=== PATIENT | male | born 1950 | race Caucasian/White ===

== ENCOUNTER → 2017-01-25 | Outpatient (CLI) | payer MEDICARE, OTHER ==
[~2017-01-25] MED LIST: ASPIRIN LO-DOSE81 MG PO; ATIVAN 0.5MG0.5 MG PO; BELBUCA; CLEOCIN150 MG PO; COLACE100 MG PO; CYMBALTA30 MG PO; DOXYCYCLINE HY100 MG PO; DOXYCYCLINE100 MG PO; HUMALOG KW200 UNIT/1 SUB-Q; INSULIN U-500; IRON325 M1 PO; KEFLEX500 MG PO; LAMISIL AT30 GM; LEVEMIR100 UNIT/1 SUB-Q; LIVALO4 MG; LOPRESSOR50 MG PO; LOVENOX 4040 MG/0.4 SUB-Q; LYRICA 100MG C100 MG PO; MILK OF MA400 MG/5 M PO; MOBIC15 MG PO; NORVASC10 MG PO; NOVOLOG100 UNIT/1 SUB-Q; OXYCONTIN EXTEN10 MG PO; PERCOCET 5-3251 EACH PO; SENNA8.6 MG PO; SIMVASTATIN40 MG PO; SPIRONOLACTONE1 EACH PO; TEGRETOL200 MG PO; THERA-VITE W/ B1 TAB PO; VALIUM5 MG PO; VALSARTAN320 MG PO; VITAMIN C1000 MG PO; ZANTAC300 MG PO
== END | disposition disaster alternative care site (69) ==
LOC: GRAD 12:51
DX: L08.9 Local infection of the skin and subcutaneous tissue, unspecified (principal); M86.8X6 Other osteomyelitis, lower leg

== ENCOUNTER → 2017-01-31 | Outpatient (CLI) | payer MEDICARE, OTHER ==
[2017-01-31 09:52] LABS: PROTIME 10.7 SECONDS (9.6-11.1)
== END | disposition disaster alternative care site (69) ==
LOC: LGSMG 09:41
PROVIDERS: Internal Medicine
DX: Z01.818 Encounter for other preprocedural examination (principal); E11.621 Type 2 diabetes mellitus with foot ulcer; M79.606 Pain in leg, unspecified

== ENCOUNTER 2017-02-07 09:16 | Observation (INO) | payer MEDICARE, OTHER ==
[~2017-02-07] VITALS: Ht 185.4 cm; Wt 124.7 kg
--- NOTE | ~2017-02-07 | CON ---
PATIENT'S NAME: MINI THOMAS [facility] AGE: 66 Y [address] ROOM: [place] [address] LOCATION: [facility] ADMIT DATE: 02/07/2017 Consultation DISCHARGE DATE: FAMILY PHYSICIAN: Halima Farmer MD ATTENDING PHYSICIAN: SARAY BOYER DATE OF CONSULTATION: 02/08/2017 REFERRING PHYSICIAN: Saray Boyer MD CONSULTING PHYSICIAN: Dr. Monte. REASON FOR CONSULTATION: Medical management. HISTORY OF PRESENT ILLNESS: The patient is a 66-year-old male with a past medical history of type 1 diabetes on insulin pump who has undergone an elective transmetatarsal amputation today for chronic right lower extremity diabetic osteomyelitis. At this point, he is resting comfortably and the procedure was uncomplicated. The patient operates his own insulin pump and has very good handle on his glycemic/insulin needs. At this point, he denies chest pain, shortness of breath, nausea, vomiting, diarrhea, chest pain, or palpitations. REVIEW OF SYSTEMS: All 10 systems have been reviewed and are negative aside from pertinent positives mentioned above. PAST MEDICAL HISTORY: 1. Type 1 diabetes with insulin dependence. 2. Hypertension. 3. Hypercholesterolemia. 4. Chronic osteomyelitis of right lower extremity. CURRENT MEDICATIONS: 1. Norvasc. 2. Ascorbic acid. 3. Aspirin. 4. Tegretol. 5. Doxycycline. 6. Duloxetine. 7. Insulin pump. PATIENT'S NAME: MINI THOMAS [facility] AGE: 66 Y [address] ROOM: [place] [address] LOCATION: [facility] ADMIT DATE: 02/07/2017 Consultation DISCHARGE DATE: FAMILY PHYSICIAN: Halima Farmer MD ATTENDING PHYSICIAN: SARAY BOYER 8. Metoprolol 75 b.i.d. 9. Multivitamin. 10. Ranitidine. 11. Simvastatin. 12. Spironolactone/hydrochlorothiazide. 13. Valsartan. SOCIAL HISTORY: Negative for any ongoing toxic habits. FAMILY HISTORY: Reviewed and is noncontributory due to known underlying etiology for his presentation. PHYSICAL EXAMINATION: VITAL SIGNS: Temperature 98.7, pulse is 104, blood pressure 146/75, and saturating 94% on room air. GENERAL: Appears as a well-developed, well-nourished elderly male, in no acute distress. NEUROLOGICAL: Exam is nonfocal. EYES: Exam shows pupils are equal and reactive to light. LYMPHATIC: Exam shows no cervical lymphadenopathy. NECK: Exam shows no thyromegaly. LUNGS: Clear to auscultation. HEART: Rate is slightly tachycardic and regular. GI: Abdomen is soft, nontender, nondistended. : Reveals no costovertebral angle tenderness. VASCULAR: Exam is deferred. MUSCULOSKELETAL: Exam is deferred. SKIN: Warm and dry. LABORATORY STUDIES: Studies are just significant for Accu-Cheks in 130s to 150s. IMPRESSION/RECOMMENDATIONS: This is a 66-year-old male postop day #1 for transmetatarsal amputation. Individual problems to be addressed as follows: 1. Type 1 diabetes. The patient is adept at operating his own pump. I have put in orders for that. We will discontinue his D5. 2. Essential hypertension. Well-controlled on the current oral regimen. 3. Hypercholesterolemia. Continue with his statin. Additional management will depend on his clinical course. We will follow the patient with you. Thank you for allowing us to participate in the care of this pleasant gentleman. Time dedicated to this patient encounter is 15 minutes. PATIENT'S NAME: MINI THOMAS [facility] AGE: 66 Y [address] ROOM: [place] [address] LOCATION: [facility] ADMIT DATE: 02/07/2017 Consultation DISCHARGE DATE: FAMILY PHYSICIAN: Halima Farmer MD ATTENDING PHYSICIAN: SARAY BOYER MD ILENE LEONARDO/karie /[id number] d: 02/08/172 t: 02/18/17 033, CONSULTATION REPORT
--- NOTE | ~2017-02-07 | OR ---
PATIENT'S NAME: MINI WRIGHT [facility] AGE: 66 Y [address] ROOM: [place] [address] LOCATION: [facility] ADMIT DATE: 02/07/2017 OR/Procedure Report DISCHARGE DATE: FAMILY PHYSICIAN: Halima Farmer MD ATTENDING PHYSICIAN: ASRAY BOYER SURGEON: Saray Boyer MD RELAY TESTER HELPER: Stuart Krueger PA-C. DATE OF PROCEDURE: 02/07/2017 PREOPERATIVE DIAGNOSES: 1. Right forefoot diabetic wound and osteomyelitis in the setting of previous toe amputations. 2. Gastrocnemius equinus/shortened Achilles tendon. POSTOPERATIVE DIAGNOSES: 1. Right forefoot diabetic wound and osteomyelitis in the setting of previous toe amputations. 2. Gastrocnemius equinus/shortened Achilles tendon. PROCEDURES PERFORMED: 1. Right foot transmetatarsal amputation. 2. Gastrocnemius recession procedure, right leg. 3. Use of intraoperative fluoroscopy, less than one hour. ANESTHESIA: Spinal anesthesia with peripheral nerve blocks. ESTIMATED BLOOD LOSS: Minimal. TOURNIQUET: Right proximal thigh at 250 mmHg. SPECIMEN: Right forefoot. COMPLICATIONS: None. DISPOSITION: Stable, in PACU. COUNTS: All counts were correct. INDICATIONS: Mr. Wright is a pleasant 66-year-old gentleman, who underwent the noted procedures above. The risks, benefits, and alternatives of pursuing a surgical intervention were discussed with the patient in detail. The patient elected to proceed with surgery. Anesthesia was consulted for perioperative evaluation. I marked the lower lobe from the surgical site. OPERATIVE REPORT IN DETAIL: The patient was brought from the holding area to PATIENT'S NAME: MINI WRIGHT [facility] AGE: 66 Y [address] ROOM: [address] [address] LOCATION: [facility] ADMIT DATE: 02/07/2017 OR/Procedure Report DISCHARGE DATE: FAMILY PHYSICIAN: Halima Farmer MD ATTENDING PHYSICIAN: SARAY BOYER the operating room. A time-out was performed. Anesthesia performed through the course of the case. The patient was placed supine on the operating room table. The right lower extremity was then prepped and draped in a sterile fashion. Antibiotic was administered for perioperative prophylaxis. An Esmarch was used to exsanguinate the limb, and the tourniquet was inflated to 250 mmHg. I turned my attention to the medial aspect of the leg. I used a #15 blade knife to make the incision through skin and subcutaneous tissue down to the fascia to identify the gastrocnemius aponeurosis for my gastrocnemius recession procedure. I then introduced a speculum. I identified the aponeurosis and used a #15 blade knife to cut it. I then removed the speculum and hyperdorsiflexed the ankle and achieved improved dorsiflexion of the ankle after this. The wound was then copiously irrigated with normal sterile saline solution. The bulb syringe and closed in layers beginning with 0 Vicryl suture, followed by 2-0 Vicryl suture and staple to approximate the skin. I then turned my attention to the forefoot. The patient has already had previous toe amputations and had a wound with some serous drainage that has been opening on and off. I marked out my transmetatarsal amputation flap. It was a full-thickness incision circumferentially around the foot. I was carefully cauterizing the vessels and tied them off, and tendons. Using oscillating saw, I performed my transmetatarsal amputation. I was careful to leaving off the fifth metatarsal in order not to disturb the attached to the peroneus brevis tendon. The soft tissues at the time of the amputation surrounding the midfoot appeared healthy and with no concern for infection. The partially amputated forefoot was then sent for specimen. The wound was then copiously irrigated with a normal sterile saline solution via pulsatile lavage. Hemostasis was maintained with the help of the Bovie electrocautery device. The wound was then closed in layers beginning with 0 Vicryl suture, followed by 2-0 Vicryl suture followed by a 2-0 nylon suture in interrupted horizontal mattress fashion to approximate the skin. The tourniquet was then let down. There was no undue tension on the flap. Sterile dressing in the form of Xeroform, followed by 4x4, Webril, and Gregorio were placed. The patient was then transferred from the operating room table on to the stretcher and brought to the recovery room in stable condition. There were no intraoperative complications noted. Of note, my Stuart ZUNIGA PA-C, played an integral role in the intraoperative care of this patient. This included preoperative positioning, intraoperative expert retraction, and closing and dressing functions. IMPRESSION: The patient is status post the noted procedures above. PATIENT'S NAME: MINI WRIGHT [facility] AGE: 66 Y [address] ROOM: [place] [address] LOCATION: [facility] ADMIT DATE: 02/07/2017 OR/Procedure Report DISCHARGE DATE: FAMILY PHYSICIAN: Halima Farmer MD ATTENDING PHYSICIAN: SARAY BOYER PLAN: The patient will be heel weightbearing on the right lower extremity in a postop shoe. Instructed to rest, ice, and elevate the extremity going forward. Postoperative antibiotics will be administered per routine. Physical Therapy and Occupational Therapy will be consulted for early ambulation for prevention of deconditioning. DVT prophylaxis will also be administered in the form of aspirin. The Case Management and Social Work team will also be consulted to help the patient at the time of discharge. The Hospitalist Service will manage the patient's medical comorbidities. We will likely perform a dressing change tomorrow prior to discharge. MD WENDY THOMPSON/modl /[id number] d: 02/07/172024 t: 02/08/17 1145, OPERATIVE SUMMARY
[~2017-02-07 09:16] MED LIST changes: -COLACE100 MG PO; -HUMALOG KW200 UNIT/1 SUB-Q; -INSULIN U-500; -IRON325 M1 PO; -LOVENOX 4040 MG/0.4 SUB-Q; -LYRICA 100MG C100 MG PO; -MILK OF MA400 MG/5 M PO; -OXYCONTIN EXTEN10 MG PO; -PERCOCET 5-3251 EACH PO; -SENNA8.6 MG PO; -VALIUM5 MG PO
--- NOTE | 2017-02-07 19:13 | NUR ---
Significant Event: patient up to floor from PACU at 1445. jana dressing to r) lower leg/foot c/d/i. patient states sensation normal to r) leg, able to move extremity slightly, r) leg warm to touch. calf pump to l) leg. denied pain when asked. r) leg elevated on pillow. has insulin pump, paper work reviewed with patient and left at bedside. Follow up:
--- NOTE | 2017-02-08 04:59 | NUR ---
Significant Event: Dressing is clean, dry and intact. No numbness or tingling. Has an insulin pump and is managing his own blood sugars. On room air. 1 assist with knee scooter that his brought. Refused pain medications except for a Percocet at 2246. Intermittently tachycardic. Possible dismissal. Follow up:
[2017-02-08] MEDS ORDERED: PERCOCET 5-3251 EACH PO (10:17)
--- NOTE | 2017-02-08 10:44 | NUR ---
Patient had no questions or concerns with discharge instructions. Patient was very anxious to get home to his dogs. Dressing was C/D/I. VSS. Percocet given prior to dismissal. Patient was wheeled to [facility] for discharge at 1030.
--- NOTE | 2017-02-08 11:04 | NUR ---
Diabetes center note; 0930 Patient had restarted his insulin pump last evening, rates of pump written on order set. Log at bedside, last blood sugar this a.m. was 108 site of infusion set is on left upper outer abdomin. Assisted patient in completing the Diabetes Survival Skills Assessment form and answered all quesitons. Copy of form applied to his chart. Cindy Merchant RN, CDE at [facility] has an appt. with patient on 02/15/17 for on-going assistance with pump management. A1C was 7.3 %. Emphasized importance of proper control of blood sugars to reduce further complications with diabetes, promore wound healing and reduce risks of wound infection. Patient and spouse both state understanding. Plans to be dismissed today, as soon as MD sees patient.
--- NOTE | 2017-02-08 15:29 | NUR ---
Introduced self and CM role to patient and his this morning. He stated that he is dismissing today and that doctor just left the room giving him the okay to discharge to home. No needs or concerns about leaving. Plan home with assistance from his . CM Occupational Health Physiotherapist TH.
[2017-03-02] MEDS ORDERED: KEFLEX500 MG PO (09:40)
[2017-07-10] MEDS ORDERED: IRON325 M1 PO (12:46)
[2017-07-10] MEDS ORDERED: INSULIN U-500 (12:49)
[2017-07-11] MEDS ORDERED: KEFLEX500 MG PO (09:33)
== END 2017-02-08 10:45 | disposition disaster alternative care site (69) ==
LOC: G3N 09:16 → GSDC 09:16 → G3N 14:45 → GSDC 14:46 → G3N 02-08 10:45 → GSDC 02-08 10:45 → G3N 02-08 10:45
PROVIDERS: ADMIT Orthopaedic Surgery Adult Reconstructive Orthopaedic Surgery
PROC: 0Y6M0Z9 Detachment at Right Foot, Partial 1st Ray, Open Approach (ICD-10-PCS; principal; 2017-02-07)
PROC: 0Y6M0ZB Detachment at Right Foot, Partial 2nd Ray, Open Approach (ICD-10-PCS; 2017-02-07)
PROC: 0Y6M0ZC Detachment at Right Foot, Partial 3rd Ray, Open Approach (ICD-10-PCS; 2017-02-07)
PROC: 0Y6M0ZD Detachment at Right Foot, Partial 4th Ray, Open Approach (ICD-10-PCS; 2017-02-07)
PROC: 0Y6M0ZF Detachment at Right Foot, Partial 5th Ray, Open Approach (ICD-10-PCS; 2017-02-07)
PROC: 0L8N0ZZ Division of Right Lower Leg Tendon, Open Approach (ICD-10-PCS; 2017-02-07)
DX: E10.69 Type 1 diabetes mellitus with other specified complication (principal); M86.8X7 Other osteomyelitis, ankle and foot; M21.6X1 Other acquired deformities of right foot; I10 Essential (primary) hypertension; E78.5 Hyperlipidemia, unspecified; K21.9 Gastro-esophageal reflux disease without esophagitis; F32.9 Major depressive disorder, single episode, unspecified; Z98.1 Arthrodesis status; Z90.49 Acquired absence of other specified parts of digestive tract; Z79.82 Long term (current) use of aspirin; Z79.4 Long term (current) use of insulin; Z79.899 Other long term (current) drug therapy
CPT/HCPCS: A9270; G0378; G8978; G8979; G8980; J0690; J1650; J2250; J3480; J7030

== ENCOUNTER → 2017-02-15 | Outpatient (CLI) | payer MEDICARE, OTHER ==
[~2017-02-15] MED LIST changes: +COLACE100 MG PO; +HUMALOG KW200 UNIT/1 SUB-Q; +INSULIN U-500; +IRON325 M1 PO; +LOVENOX 4040 MG/0.4 SUB-Q; +LYRICA 100MG C100 MG PO; +MILK OF MA400 MG/5 M PO; +OXYCONTIN EXTEN10 MG PO; +PERCOCET 5-3251 EACH PO; +SENNA8.6 MG PO; +VALIUM5 MG PO
--- NOTE | ~2017-02-15 | CON ---
PATIENT'S NAME: MINI THOMAS [facility] AGE: 66 Y [address] ROOM: [place] [address] LOCATION: [facility] ADMIT DATE: 02/15/2017 Consultation DISCHARGE DATE: FAMILY PHYSICIAN: Halima Farmer MD ATTENDING PHYSICIAN: Halima Farmer DATE OF CONSULTATION: 02/15/2017 [id number] encounter time is 11:20 a.m. to 12:20 a.m. HISTORY OF PRESENT ILLNESS: Mini is a 66-year-old white male referred by Dr. Halima Farmer for diabetic education and titration of insulin and insulin pump instruction. His current height is 6 foot 1.5 inches, weight 284.4 pounds, BMI of 36.99. Current vital signs are blood pressure 120/52, pulse 80, respirations 18, O2 saturation 91%. The patient has a history of type 2 diabetes that was diagnosed in 1984. He has been on an insulin pump for about 20 years but has not used it in the current fashion. He has a [employer] insulin pump. He also takes Levemir as a basal dose every day along with his insulin pump which is a little unusual. PAST MEDICAL HISTORY: His current problems or past history is lumbosacral pain, depression, diabetic neuropathy, former diabetic ulcer in toe with recent right midfoot amputation for osteomyelitis, GERD, hyperlipidemia, hypertension, neck pain. CURRENT MEDICATIONS: 1. Aspirin 81 mg daily. 2. Multivitamin 1 daily. 3. Vitamin C 1000 mg daily. 4. Simvastatin 40 mg daily. 5. Amlodipine 10 mg daily. 6. Metoprolol 50 mg 1.5 tablets twice daily. 7. Spironolactone with hydrochlorothiazide 25/25 one daily. 8. Valsartan 320 mg daily. 9. Cephalexin 500 mg t.i.d. for 10 days which started on February 15. 10. In addition to his NovoLog U-100 which he takes approximately 117.5 units for a total daily dosage plus or minus 10.2 with 52% of that being basal at 61.7 units and 48% of that being 55.8 units per day which is actually pretty close to 50:50, not counting his basal Levemir which he uses 30 units daily. LABORATORY DATA: His most recent laboratory data was obtained on 01/22/2017 with a fasting glucose of 172. Lipid profile showing total cholesterol 134, HDL 39, LDL 76, PATIENT'S NAME: MINI THOMAS [facility] AGE: 66 Y [address] ROOM: [place], [place] [address] LOCATION: [facility] ADMIT DATE: 02/15/2017 Consultation DISCHARGE DATE: FAMILY PHYSICIAN: Halima Farmer MD ATTENDING PHYSICIAN: Halima Farmer triglycerides 96. Potassium 3.7, BUN 32, creatinine 1.53 with an EGFR of 48.8. His most recent glycosylated hemoglobin obtained on 02/08/2017 was 7.3% with an average glucose of 162.8. He has a One Touch glucometer that is paired with his [employer] insulin pumps and he checks 4 plus times per day usually before meals and sometimes intermittently when he feels like he is high. It is approximately 3 years old, which is also the age of his insulin pump. He states that he does not really feel like he is low until his blood sugars are down into the 40s and when that happens he is able to awaken from sleep and he is starving, knows he needs to get up and eat something and always checks his blood sugar prior to eating. In the day time when he gets a hypoglycemic reaction, he feels likes he is in [place] and gets kind of sweaty and checks his sugar and then treats it usually with a peanut butter cracker or some sort of carbohydrate. We did discuss the rule of 15 and the importance of using a quick acting glucose agent such as orange juice, apple juice, or regular Pop about 4 ounces or 4 glucose tablets. He also uses some Skittles at times. I told him if it was going to be a while before meals, that would be the time to do something with some peanut butter or some protein to help it last a little bit longer. He has absolutely no interest in exercise at all mainly right now because of the right midfoot amputation. He has lot of pain in his back, neck, and legs due to severe arthritis. He rarely sees the dentist. He was encouraged to see the dentist on a yearly basis at least as diabetics tend to have more gum disease. The one good thing is that he has all of his own teeth and they are in good repair at this point in time. He has not seen an eye physician for approximately one and half years and did have the beginning of retinopathy at the last visit. He has not seen anybody since he moved here. He is encouraged to make an appointment with an pension fund manager. He has not had any history of any laser treatments for the retinopathy. I did not examine his foot today as he had an appointment with Dr. Morley. The right foot has a large bandage on it from his recent right midfoot amputation. The left foot has Xblxgrs-Zpoij-Iynoe and he does have some numbness and tingling in the feet and known diabetic neuropathy. There are no calluses or open sores on the left foot. He no longer smokes or chews tobacco. He quit chewing tobacco about 2 or 3 months ago. 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 He has been retired since age 61. He does not consume much in the way of alcohol. He lives at home with his spouse. They both prepare meals and they eat out about 1 to 2 times a week with his favorite being [employer] or [employer], which he eats the burgers at. His schedule changes on the weekends and weekdays are about the same. There is not much difference. He denies any food related allergies or intolerances but is allergies to sulfa, morphine sulfate, and iodine contrast. His appetite is normally very good but in the last week or so since his surgery, he has not felt like eating much. Although PATIENT'S NAME: MINI THOMAS [facility] AGE: 66 Y [address] ROOM: [place], [place] [address] LOCATION: [facility] ADMIT DATE: 02/15/2017 Consultation DISCHARGE DATE: FAMILY PHYSICIAN: Halima Farmer MD ATTENDING PHYSICIAN: Halima Farmer his sugars have not really been low, they have actually been elevated mainly because of the stress of the surgery and the healing going on. He denies any constipation or diarrhea in spite of the use of his pain medication right now. His vitamins and mineral supplements consist of multivitamin and vitamin C. when he was first diagnosed with diabetes, he did not really think too much about it and really did not have of an impact on him, but [place], it has affected his livelihood. Today, he seems a little depressed; however, he says he is just really tired, it has been a long day because he had an appointment with Dr. Morley that was supposed to be around 9:30 and he had to wait about 2 hours to be seen and then had to come up and sit here with me. His foot also needs to be elevated as it is not used to being down on the ground. It is somewhat swollen still from the surgery. He also notes that he is used to being in a recliner as he has a lot of neck and back pain due to the severe degenerative arthritis. He notes that his typical day starts anywhere from 7 a.m. to 11 a.m. He gets up and checks his blood sugar and then eats breakfast. His breakfast consists of a banana and muffin or a bowl of cereal. Normally, 1.5 to 3 cups of Life cereal and water. He does not have a mid morning snack. He eats lunch anywhere from 12 to 1. He will have a sandwich using the whole wheat sandwich thins that contains of about 17 grams of carbohydrate with some cheese and meat. He will have an apple and some [employer] and Fit yogurt and water. He does not have an afternoon snack. He eats his evening meal between 6 and 7 p.m., which will consist of some sort of meat such as last night he had a grilled chicken breast and salad with blue cheese dressing and water. He will occasionally eat carrots celery or green beans and sweet potato or he will have an apple and yogurt. So, most of his meals consist of about 60 grams of carbohydrate each meal except for supper and that is lacking and is probably only about 15 to 20 depending on if he has an apple and yogurt. He does not have a bedtime snack and then bedtime is around midnight. His current insulin pump settings which he just recently changed because he has been high in the morning is from 8 a.m. to midnight is 3.1 units per hour and then from midnight to 8 a.m., he uses 2.7 units per hour. Prior to this, he had been doing 2.7 units around the clock per hour. His pump is not set up at all with his targets, his insulin sensitivity, his insulin to carb ratio. Right now, his insulin to carb ratio is 1 to 5. His sensitivity is about 20. His targets will be from 100 to 150. He did allow me to set those in his pump and link his One Touch UltraLink to his pump, so that all he has to do is put the carbohydrates in. It will do the calculation for the meals and for his correction doses. He is going to return to see Dr. Morley in 1 week. Three days prior to his appointment with Dr. Morley, he will do some testing in pairs to make sure that we have his insulin to carb ratio right. At that time, we will make some adjustment in his pump. I advised him that I do not like to make more that 10% to 20% adjustments at a time and only one parameter at a time, so that we do not have problems with being low. I eventually would like to get him off the basal Levemir because that is not quite normal to be used with a pump and we will PATIENT'S NAME: MINI THOMAS [facility] AGE: 66 Y [address] ROOM: [place] [address] LOCATION: [facility] ADMIT DATE: 02/15/2017 Consultation DISCHARGE DATE: FAMILY PHYSICIAN: Halima Farmer MD ATTENDING PHYSICIAN: Halima Farmer have to add that into his total daily insulin dose. I believe that we may have to switch him to a U-200 Humalog insulin so that we have less volume needing to be absorbed every hour. Once the volume gets over 3 units per hour, it is a little difficult to have equal absorption. I did examine his abdomen and he only had one area in the left mid flank that was a hard scar tissue area. The rest of his stomach felt quite pliable and no signs of any hypertrophy or lipodystrophy. We did discuss more steady carb intake. I also suggested that he eat about 60 grams carbohydrate per meal 3 times a day and have a 15 gram snack somewhere around 11 p.m. before he goes to bed. He said he did have difficulty sleeping last night as he just could not get comfortable. He has not taken any pain pills for about 24 hours, and I told him I thought he should take 1 at bedtime just so he is able to sleep a little bit better. He seems very open to the concept of using his pump in the way it should be used rather than an expensive insulin syringe. He is knowledgeable as far as his diabetes is concerned and we have the fact that he is not able to exercise. We may talk to him about doing some resistance things with some stretch bands and may be some small weights that may help and at least he could do that sitting in a chair or even in his recliner. We did discuss portion sizes and incorporating more vegetables into his diet for the fiber content. His shoes that he is wearing today look appropriate for the left foot. He is a high risk patient because he has the history of foot ulcer and prior amputation as well as the neuropathy. Thank you for this interesting consultation Dr. Farmer. He will be a work in progress unless he will probably be meeting with me weekly to try to get things under better control. RAPHAEL DIAZ RN CDE [facility]/karie /[id number] d: 02/16/17 0045 t: 02/19/17 1055, CONSULTATION REPORT
== END | disposition disaster alternative care site (69) ==
LOC: GDIC 08:56
DX: E11.40 Type 2 diabetes mellitus with diabetic neuropathy, unspecified (principal); E78.5 Hyperlipidemia, unspecified; I10 Essential (primary) hypertension; M54.2 Cervicalgia; Z79.82 Long term (current) use of aspirin; Z79.899 Other long term (current) drug therapy
CPT/HCPCS: G0108

== ENCOUNTER 2017-03-02 10:44 | Emergency (ER) | payer MEDICARE, OTHER ==
--- NOTE | ~2017-03-02 | ER ---
PATIENT'S NAME: MINI THOMAS [facility] AGE: 66 Y [address] ROOM: [place] [address] LOCATION: ED ADMIT DATE: 03/02/2017 ER/Outpatient Report DISCHARGE DATE: 03/02/2017 FAMILY PHYSICIAN: Halima Farmer MD ATTENDING PHYSICIAN: Kailash Busch Admission date and time documented in the medical record. I saw the patient at 1055 hours. CHIEF COMPLAINT: Low blood pressure. HISTORY OF PRESENT ILLNESS: The patient is a 66-year-old male who [facility] and had low blood pressures. He was sent over to the emergency room for evaluation. On arrival, his blood pressure was 89/55 with a pulse of 74. He felt a little bit lightheaded and dizzy. He does have a history of hypertension. He is on hypertensive medications. He did take them this morning. He has been drinking as well yesterday and today as he normally does. The patient has diabetic foot ulcer, multiple operations to his right foot. Has had diabetic ulcer with osteomyelitis. He has routine wound care on his foot. The patient is an insulin-dependent diabetic, on an insulin pump. He has no other endocrine problems. He does have peripheral diabetic neuropathy and diabetic retinopathy. Does have depression. No recent cough, colds, flus, fever, chills, or sweats. No fall or trauma. No syncope. No headache, eyes, ears, nose, throat, neck, or spine pain. No chest pain or shortness of breath. No abdominal pain, nausea, vomiting, diarrhea, or urinary complaints. Other than his right foot to which he has wound care dressing changes, no other extremity problems. No skin eruptions or rash. HOME MEDICATIONS: See attached medication list. ALLERGIES: NONE. SOCIAL HISTORY: Nonsmoker. Nondrinker. SIGNIFICANT PAST MEDICAL HISTORY: Dyslipidemia, hypertension, insulin-dependent diabetes mellitus, on insulin pump, diabetic foot ulcer with osteomyelitis, depression, peripheral diabetic neuropathy, diabetic retinopathy, gastroesophageal reflux, degenerative osteoarthritis, remote tobacco abuse, chronic back pain. PATIENT'S NAME: MINI THOMAS [facility] AGE: 66 Y [address] ROOM: [place] [address] LOCATION: ED ADMIT DATE: 03/02/2017 ER/Outpatient Report DISCHARGE DATE: 03/02/2017 FAMILY PHYSICIAN: Halima Farmer MD ATTENDING PHYSICIAN: Kailash Busch OPERATIONS: Right leg surgery, right foot surgery. REVIEW OF SYSTEMS: All systems reviewed by me are negative with the exception of those discussed in the history of the present illness. PHYSICAL EXAMINATION: VITAL SIGNS: Temperature 96.4, tympanic; pulse 74, regular; respirations 20; blood pressure 89/55; O2 saturation on room air is 96%; blood pressure did come up to 169/65 with fluids. HEAD: Normocephalic. No abrasion, contusion, laceration, swelling of the scalp or face. EYES: Extraocular muscles intact. PERRL. Sclerae and conjunctivae clear, nonicteric. No nystagmus. EARS: Clear TMs bilaterally. NOSE: Clear. THROAT: Clear. Mucous membranes moist. NECK: No nuchal rigidity. No thyromegaly or cervical adenopathy. SPINE: Negative. LUNGS: Clear. Good air flow. No rales, rhonchi, or wheezes. HEART: Regular. Pulses are palpable. No chest wall or ribcage pain to palpation. ABDOMEN: Soft, nondistended, nontender. Good bowel tones. No organomegaly or abnormal mass palpable. EXTREMITIES: The patient is in a foot brace shoe. Does have clean dressings on. No other peripheral edema, cyanosis, or deformity of his extremities. NEUROVASCULAR: Intact. SKIN: Clear. No skin eruptions or rash other than the right foot wound. DIAGNOSTIC DATA: Chest x-ray showed no acute infiltrate or changes. We will review x-ray with radiologist. The patient refused EKG. Laboratory: Procalcitonin was less than 0.05. Lactate was 2.3. White count is 9500; 66 segs, 25 lymphs, 8 monos. Hemoglobin is 11, hematocrit 32.6, platelet count is 422,000. PTT is 29, pro-time is 10.8, and INR 1.03. CRP was 1.52. Thyroid tests were normal. ProBNP was 39. Chemistry was normal except an elevated glucose 121, elevated BUN at 27, elevated creatinine 1.6, low GFR of 44. Magnesium was 2.3. CPK was 66. Revhs-xi-uuof cardiac enzymes were normal. Serum ketones were negative. Venous pH was 7.39. IMPRESSION: 1. Hypotension. Etiology uncertain. Most likely secondary to mild dehydration. BUN was 27 with a high normal of 24. PATIENT'S NAME: MINI THOMAS [facility] AGE: 66 Y [address] ROOM: [place], [place] [address] LOCATION: [facility] ADMIT DATE: 03/02/2017 ER/Outpatient Report DISCHARGE DATE: 03/02/2017 FAMILY PHYSICIAN: Halima Farmer MD ATTENDING PHYSICIAN: Kailash Busch 2. Insulin-dependent diabetes mellitus, on insulin pump. 3. Hypertension. 4. Dyslipidemia. 5. Right foot diabetic ulcer with osteomyelitis. Daily wound care. 6. Peripheral diabetic neuropathy. 7. Diabetic retinopathy. 8. Diabetic nephropathy. 9. Remote tobacco abuse. 10. Degenerative osteoarthritis with chronic back pain. PLAN: The patient was given normal saline fluids here in the emergency room with marked improvement in his blood pressure. Dismissed home. Observation. Activity as tolerated. Continue present home medications and care. Fluids and diet as tolerated. Follow up with personal physician as needed or as scheduled. Discussion ensued with the patient concerning my findings and recommendations, he understands. KAILASH BUSCH MD SDS/modl /[id number] d: 03/02/172027 t: 03/03/17 0610, OUTPATIENT REPORT
[~2017-03-02 10:44] MED LIST changes: -COLACE100 MG PO; -HUMALOG KW200 UNIT/1 SUB-Q; -INSULIN U-500; -IRON325 M1 PO; -LOVENOX 4040 MG/0.4 SUB-Q; -LYRICA 100MG C100 MG PO; -MILK OF MA400 MG/5 M PO; -OXYCONTIN EXTEN10 MG PO; -SENNA8.6 MG PO; -VALIUM5 MG PO
[2017-03-02 11:10] LABS: LACTATE 2.3 mEq/L (0.50-1.60)
[2017-03-02 11:11] LABS: BASOPHIL % 0.2 %; EOSINOPHIL % 0.4 %; HEMATOCRIT 32.6 % (37.0-53.0); IMMATURE GRANULOCYTE # 0.1 K/uL (0.0-0.3); IMMATURE GRANULOCYTE % 0.5 %; LYMPHOCYTE # 2.4 K/uL (0.8-4.0); LYMPHOCYTE % 25.2 %; MCH 30.9 pg (27.0-34.0); MCHC 33.7 gm/dL (32.0-36.5); MCV 91.6 fl (83.0-98.0); MONOCYTE # 0.7 K/uL (0.0-1.0); MONOCYTE % 7.6 %; MPV 9.8 fl (9.4-12.4); NEUTROPHIL # (ANC) 6.3 K/uL (1.4-9.0); NEUTROPHIL % 66.1 %; NRBC % 0.2 /100WBC (0-0.00); PLATELET COUNT 422 K/uL (150-450); RDW-CV 13.8 % (11.9-14.6); WBC 9.5 K/uL (4.0-11.0)
[2017-03-02 11:13] LABS: RBC 3.56 M/uL (3.50-5.50)
[2017-03-02 11:22] LABS: INR - (THERAPEUTIC) 1.03 (0.92-1.07); PROTIME 10.8 SECONDS (9.8-11.4); PTT 29 SECONDS (25-32)
[2017-03-02 11:34] LABS: ALBUMIN 3.6 gm/dL (3.5-5.0); ALK PHOS 103 IU/L (33-138); ALT 24 IU/L (12-78); ANION GAP 12.8 (10.0-19.0); AST 15 IU/L (10-40); BLOOD UREA NITROGEN 27 mg/dL (6-24); CALCIUM 9.2 mg/dL (8.5-10.5); CHLORIDE 99 mMol/L (96-110); CO2 28 mMol/L (22-32); CPK 66 IU/L (35-332); CREATININE 1.6 mg/dL (0.6-1.3); ESTIMATED GFR (MDRD EQUATION) 44; MAGNESIUM 2.3 mg/dL (1.8-2.6); POTASSIUM 3.8 mMol/L (3.7-5.1); SODIUM 136 mMol/L (135-145); TOTAL BILIRUBIN 0.3 mg/dL (0.0-1.5); TOTAL PROTEIN 8.2 g/dL (6.0-8.4)
[2017-07-10] MEDS ORDERED: IRON325 M1 PO (12:46)
[2017-07-10] MEDS ORDERED: INSULIN U-500 (12:49)
[2017-07-11] MEDS ORDERED: KEFLEX500 MG PO (09:33)
== END 2017-03-02 12:26 | disposition disaster alternative care site (69) ==
LOC: GMED 10:44
PROVIDERS: Emergency Medicine
DX: I95.9 Hypotension, unspecified (principal); I10 Essential (primary) hypertension; E11.621 Type 2 diabetes mellitus with foot ulcer; M86.9 Osteomyelitis, unspecified; L97.519 Non-pressure chronic ulcer of other part of right foot with unspecified severity; F32.9 Major depressive disorder, single episode, unspecified; K21.9 Gastro-esophageal reflux disease without esophagitis; E11.42 Type 2 diabetes mellitus with diabetic polyneuropathy; E11.319 Type 2 diabetes mellitus with unspecified diabetic retinopathy without macular edema; E11.21 Type 2 diabetes mellitus with diabetic nephropathy; M19.90 Unspecified osteoarthritis, unspecified site; M54.9 Dorsalgia, unspecified; G89.29 Other chronic pain; E78.5 Hyperlipidemia, unspecified; Z96.41 Presence of insulin pump (external) (internal); Z72.0 Tobacco use; Z79.2 Long term (current) use of antibiotics; Z79.82 Long term (current) use of aspirin; Z79.899 Other long term (current) drug therapy
CPT/HCPCS: J7030

== ENCOUNTER 2017-03-22 13:00 | Inpatient (IN) | payer MEDICARE, OTHER ==
[~2017-03-22] VITALS: Ht 185.4 cm; Wt 118.6 kg
--- NOTE | ~2017-03-22 | PUL ---
PATIENT'S NAME: MINI THOMAS [facility] AGE: 66 Y [address] ROOM: [address] [address] [place] [facility] [place] DATE: 03/28/2017 Pulmonary DISCHARGE DATE: 04/01/2017 FAMILY PHYSICIAN: Halima Farmer MD ATTENDING PHYSICIAN: Hu Morley NAME OF PROCEDURE: Nighttime Oximetry DATE OF PROCEDURE: March 30 to March 31, 2017 REASON FOR EXAM: Nocturnal hypoxemia RESULTS: The total recording time was 9 hours, 34 minutes, and 56 seconds, the total sampling time was 9 hours, 34 minutes, and 56 seconds. Highest pulse was 96, the lowest pulse was 67, with mean pulse of 75. Highest SpO2 was 99, the lowest SpO2 was 69, with mean SpO2 is 89.5. The total time SpO2 less than 89% was 3 hours, 58 minutes, and 48 seconds which is 41.5%. desaturation index was 12.3. PHYSICIAN INTERPRETATION: The patient has met Medicare criteria category one for nighttime oxygen. Thank you for allowing to participate in care of this patient. MD MEE WALKER/quentin /[id number] dtt: 04/09/17 1052 , Chuck Delvalle dtd: 04/03/17 1104
--- NOTE | ~2017-03-22 | DS ---
PATIENT'S NAME: MINI THOMAS [facility] AGE: 66 Y [address] 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 SECONDARY DIAGNOSES: 1. Diabetes mellitus type 1. 2. Hypertension. 3. Hypercholesterolemia. 4. Chronic osteomyelitis of the right lower extremity. CONSULTATIONS: 1. To the Hospitalist Service for medical management. 2. Erlin Lazo MD for pain control. PROCEDURES: The patient underwent the following procedure on March 28, [address] Morley. Right shpyt-ayn-wpee amputation. HISTORY OF PRESENT ILLNESS: The patient is a 66-year-old male, who previously underwent a right foot transmetatarsal on February 07, 2017. Postoperatively, the patient was treated with antibiotics. He was [facility] due to some delayed wound healing. The patient did develop wound dehiscence postoperatively and was recommended to have a below-knee amputation at that time. HOSPITAL COURSE: The patient did undergo the above described procedure. The Hospitalist Service followed the patient medically. Dr. Lazo was consulted for medical management. The patient postoperatively did have pain control issues that that did require an additional nerve block to help control the pain. After the patient was seen byDr. Lazo and after adjusting the patient's medications the optimal course of pain medications was found for the patient. The patient was optimized medically (including his oxygen level) by the Hospitalist. The patient was found to be stable on April 01, 2017 was discharged home at that time. DISCHARGE INSTRUCTIONS: Home medications: Stop medications. Cephalexin 500 mg p.o. daily. PATIENT'S NAME: MINI THOMAS [facility] AGE: 66 Y [address] ROOM: [place] [address] LOCATION: [facility] ADMIT DATE: 03/28/2017 Discharge Summary DISCHARGE DATE: 04/01/2017 FAMILY PHYSICIAN: Halima Farmer MD ATTENDING PHYSICIAN: Hu Morley New medications: 1. Senna two tabs every night at bedtime. 2. Diazepam 5 mg every 8 hours as needed for muscle spasms. 3. Milk of magnesia 30 mL as needed for constipation. 4. Percocet 5/325 mg 1 to 2 tabs every 4 hours. 5. Lovenox 40 mg subcu daily. 6. Colace 100 mg p.o. t.i.d. p.r.n. constipation. 7. Oxycodone 10 mg extended release one tab q.12 hours. 8. Lyrica 100 mg twice daily. The patient was otherwise instructed to continue his preadmission medications as prescribed by his Internal Medicine doctor. DISCHARGE INSTRUCTIONS: The patient may resume his home diet as previously instructed. He is to be nonweightbearing of his right lower extremity. He is to follow up with Dr. oMrley in 2 weeks postoperatively for followup. ROGER YOUNG PA-C FOR MD SOL THOMPSONW/karie /[id number] d: 04/15/17312 t: 04/17/17 1416, DISCHARGE SUMMARY
--- NOTE | ~2017-03-22 | OR ---
PATIENT'S NAME: MINI WRIGHT [facility] AGE: 66 Y [address] 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 PROCEDURES PERFORMED: 1. Right below-knee amputation. 2. Use of intraoperative fluoroscopy, less than 1 hour. ANESTHESIA: General endotracheal anesthesia and peripheral nerve blocks. FLUIDS: See Anesthesia report. ESTIMATED BLOOD LOSS: 100 mL. SPECIMEN: Right amputated extremity. COMPLICATIONS: None. DISPOSITION: Stable in PACU. COUNTS: All counts were correct. INDICATIONS FOR PROCEDURE: Mr. Wright is a pleasant 66-year-old gentleman, who underwent the noted procedure above. The risks, benefits, and alternatives pursuing a surgical intervention were discussed with the patient in detail. He elected to proceed with surgery as noted above. I marked the right lower extremity indicating the correct surgical site. Anesthesia was consulted for their perioperative evaluation of the patient. DESCRIPTION OF PROCEDURE: Operative report in detail: The patient was brought from the holding area to the operative room. A time-out was performed. Anesthesia was administered. Antibiotics were administered for perioperative prophylaxis. PATIENT'S NAME: MINI WRIGHT [facility] AGE: 66 Y [address] ROOM: [place] [address] LOCATION: [facility] ADMIT DATE: 03/28/2017 OR/Procedure Report DISCHARGE DATE: FAMILY PHYSICIAN: Halima Farmer MD ATTENDING PHYSICIAN: SARAY BOYER The right lower extremity was then prepped and draped in a sterile fashion. I turned my attention to the right lower extremity. The gangrenous right foot was covered with a drape. The extremity was exsanguinated and tourniquet was inflated to 250 mmHg. I turned my attention to the right leg. I measured approximately 15 cm below the tip of the tibial tuberosity. I marked my incision for the below-knee amputation. I began by making incision over the tibia and fibula. I cauterized and tied off the major vessels. I cut the nerves and allowed them to retract proximally. I used an oscillating saw to perform my tibial osteotomy and fibula osteotomy. The fibula was osteotomized approximately 3 to 4 cm proximal to the tibia. I then beveled the tibia using the oscillating saw. I used a rasp to clean the edges. The leg was then amputated. The wound was then copiously irrigated with a normal sterile saline solution by pulsatile lavage. The tourniquet was let down, and a Bovie electrocautery device was used to maintain hemostasis. I then elevated the leg and turned on the tourniquet again. I drilled 2 holes in the distal tibia. I passed #1 at the bottom suture. I then approximated the Achilles as a flap over the tibia and attached to the anterior fascia. I then used 0 Vicryl suture to approximate and tack down the deeper soft tissues. I used 2-0 Vicryl suture to approximate the subcutaneous tissue and 0 PDS suture to approximate the skin flap and there was no undue tension on the flap. Sterile dressing was placed in the form of Xeroform, followed by 4x4, and Webril. A Hemovac drain was placed into the stump site and hooked up to suction initially and then changed over to the Hemovac drain. Intraoperative fluoroscopy was introduced revealing evidence of a successful below-knee amputation. The patient was then placed into a splint with the knee in extension. The tourniquet was let down. The patient was then transferred to the operating room table onto the hospital bed and extubated. He was brought to the recovery room in stable condition. There were no intraoperative complications noted. Of note, my PA, Stuart Krueger PA-C, played an integral role in the PATIENT'S NAME: MINI WRIGHT [facility] AGE: 66 Y [address] ROOM: [id number] [place] [id number] LOCATION: [facility] ADMIT DATE: 03/28/2017 OR/Procedure Report DISCHARGE DATE: FAMILY PHYSICIAN: Halima Farmer MD ATTENDING PHYSICIAN: SARAY BOYER intraoperative care of this patient. This included preoperative positioning, intraoperative expert retraction, and closing and dressing, and splinting functions. IMPRESSION: The patient is status post the noted procedure above. PLAN: The patient will be nonweightbearing on the right lower extremity. He will keep the splint in place to postoperative day 2. We will consult Field Crop Technical Officer to place the patient into a stump shield after we take the dressings and splint down. Physical Therapy and Occupational Therapy will be consulted for early ambulation and prevention of deconditioning. Hemovac drain will stay in place until postoperative day 2. Postoperative antibiotics will be continued per routine. Postoperative DVT prophylaxis will be in the form of Lovenox. The hospitalist will be consulted for management of the patient's concomitant medical comorbidities. I will continue to monitor the patient closely in the postoperative period. He will be strict nonweightbearing on the right lower extremity. MD WENDY THOMPSON/karie /[id number] d: 03/28/17 2211 t: 03/29/17 0844, OPERATIVE SUMMARY
--- NOTE | ~2017-03-22 | CON ---
PATIENT'S NAME: MINI THOMAS [facility] AGE: 66 Y [address] ROOM: [place] [address] LOCATION: [facility] ADMIT DATE: 03/28/2017 Consultation DISCHARGE DATE: FAMILY PHYSICIAN: Halima Farmer MD ATTENDING PHYSICIAN: SARAY BOYER DATE OF CONSULTATION: 03/28/2017 REFERRING PHYSICIAN: ADONIS PERDOMO MD CONSULTING PHYSICIAN: Dr. Perdomo. REASON FOR CONSULTATION: Postoperative medical management. HISTORY OF PRESENT ILLNESS: The patient is a 66-year-old male who is postop day 0 for right ujgyn-oic-bjdf amputation for diabetic osteomyelitis. The patient does have a history of type 1 diabetes on insulin pump and normally manages his own. At this point, he is only endorsing pain at the op site for which he is getting up titrated opioids and muscle relaxant regimen. REVIEW OF SYSTEMS: All systems have been reviewed and are negative aside from pertinent positives mentioned above. PAST MEDICAL HISTORY: Type 1 diabetes with insulin dependence, hypertension, hypercholesterolemia, and chronic osteomyelitis of the right lower extremity. PAST SURGICAL HISTORY: Significant for a oeqex-fkj-adss amputation today. SOCIAL HISTORY: Negative for any ongoing toxic habits. FAMILY HISTORY: Noncontributory due to known underlying etiology for his presentation. CURRENT MEDICATIONS: 1. Ascorbic acid. 2. Aspirin. 3. Tegretol. 4. Keflex. 5. Cymbalta. PATIENT'S NAME: MINI THOMAS [facility] AGE: 66 Y [address] ROOM: [place] [address] LOCATION: [facility] ADMIT DATE: 03/28/2017 Consultation DISCHARGE DATE: FAMILY PHYSICIAN: Halima Farmer MD ATTENDING PHYSICIAN: SARAY BOYER 6. Insulin pump. 7. Metoprolol 50 b.i.d. 8. Multivitamin. 9. Zantac. 10. Simvastatin 40. 11. Spironolactone/hydrochlorothiazide 25/25. 12. Valsartan 160 daily. PHYSICAL EXAMINATION: VITAL SIGNS: Temperature 97.4, pulse is 89, respirations 16, blood pressure 157/79, and satting 99% on 3 L nasal cannula. GENERAL: Appears as an obese, elderly male, in no significant distress. NEUROLOGICAL: Exam is nonfocal. EYES: Exam shows pupils are equal and reactive to light. LYMPHATICS: Exam shows no cervical lymphadenopathy. ENDOCRINE: Exam shows no thyromegaly. LUNGS: Clear to auscultation. HEART: Rate is regular. No appreciable murmurs, gallops, or rubs. ABDOMEN: Soft, nontender, nondistended. : No costovertebral angle tenderness. VASCULAR: A 2+ pedal pulses in the left lower extremity. MUSCULOSKELETAL: Exam is deferred. PSYCHIATRIC: Exam reveals appropriate mood, cognition, and affect. SKIN: Warm and dry. LABORATORY DATA: No lab studies are available as of yet. IMPRESSION AND RECOMMENDATIONS: This is a 66-year-old male, postop day 0, for right grrun-dkg-bztw amputation for osteomyelitis. At this point, individual problems to be addressed are: 1. Insulin-dependent diabetes mellitus. The patient manages his own pump normally and we will let him do that. 2. Essential hypertension. All of his home blood pressure medications have been resumed and we will monitor his blood pressure and make adjustments as needed. 3. Bowel regimen. At this point, I feel that the patient's bowel regimen is possibly inadequate and we will add Colace and MiraLAX to promote bowel movement. 4. Additional management will depend on clinical course. We will follow the patient with you. Thank you for allowing us to participate in the care of this gentleman. Time dedicated to this patient encounter is 25 minutes. PATIENT'S NAME: MINI THOMAS [facility] AGE: 66 Y [address] ROOM: [place] [address] LOCATION: [facility] ADMIT DATE: 03/28/2017 Consultation DISCHARGE DATE: FAMILY PHYSICIAN: Halima Farmer MD ATTENDING PHYSICIAN: SARAY BOYER MD ILENE LEONARDO/karie /[id number] d: 03/29/17 0321 t: 04/10/17 0013, CONSULTATION REPORT
--- NOTE | 2017-03-29 04:05 | NUR ---
Significant Event: Alert/oriented x3. Pain issues throughout night - Dilaudid IVP 0.2 mg at 1847, 2149, 0216; Percocet 2 tablets at 2107, 0107; Soma at 2330. Order per Dr Krueger for Dilaudid BOOKKEEPING SERVICE SALES AGENT 0.2 mg/ 8 minute lockout/ no maximum dose, ETCO2 placed. Starting to rest better, started at 0330. Hemovac drain 10 mls out. Voided X2 - 1125 mls. Tolerates PO well. Own insulin pump, he checks and maintains it, sheet on table for him to sign ref pump. Dressing C/D/I. 3LO2. Will give next Ancef at 0600. Follow up:
[2017-03-29 05:14] LABS: BASOPHIL % 0.2 %; EOSINOPHIL # 0.1 K/uL (0.0-0.5); HEMATOCRIT 26.5 % (37.0-53.0); HEMOGLOBIN 8.8 g/dL (11.0-16.0); IMMATURE GRANULOCYTE # 0.1 K/uL (0.0-0.3); IMMATURE GRANULOCYTE % 0.7 %; LYMPHOCYTE # 2.2 K/uL (0.8-4.0); LYMPHOCYTE % 24.7 %; MCHC 33.2 gm/dL (32.0-36.5); MCV 93.3 fl (83.0-98.0); MONOCYTE # 0.8 K/uL (0.0-1.0); MONOCYTE % 9.2 %; MPV 9.6 fl (9.4-12.4); NEUTROPHIL # (ANC) 5.7 K/uL (1.4-9.0); NEUTROPHIL % 64.2 %; NRBC % 0 /100WBC (0-0.00); RBC 2.84 M/uL (3.50-5.50); RDW-CV 14.9 % (11.9-14.6); WBC 8.9 K/uL (4.0-11.0)
[2017-03-29 05:21] LABS: PLATELET COUNT 291 K/uL (150-450)
--- NOTE | 2017-03-29 10:13 | NUR ---
Diabetes center note: 1000 Checked in with patient to record insulin pump settings on order set. Rates are as follows: 0000 1.75 units per hour 1230 2.10 units per hour Insulin to carb at meals 1 unit for 10 grams of carb and sensitivity factor is 40. Patient is managing his own Medtronic pump and testing his own blood sugars. Patient is provided with a log sheet to record blood sugars and agrees to contact nursing staff if experiencing symptoms of low blood sugars. At this time, patient reports having difficulty getting pain in right stump under control. Will continue to follow patient for assistance as necessary.
--- NOTE | 2017-03-29 10:34 | NUR ---
S: Patient states that he has not had any pain relief since surgery. B: was notified and Dilaudid TRACK MOVING MACHINE OPERATOR started last night. A: When assessing patient this am, he again stated that his pain control is not adequate, he hates the alarms, he states nothing helps. R: I rounded with Dr. Conteh this morning and spoke with him and the patient about the patient's inadequate pain control. Dr. Conteh stated we should consult anesthesia for an additional block. Pt stated to Dr. Conteh and myself that "the blocks don't work". I did call anesthesia and they are unable to do it until later due to lovenox being good. I then spoke again to the patient about pain control. He again stated nothing is working and demanded that the TRACK MOVING MACHINE OPERATOR be shut off. I told him he would have to continue have EtCO2 and pulse oximetry for safety. I asked him repeatedly what he would like for pain control. Finally, after ignoring me for five minutes, he said the only thing that would work for pain control is Percocet and Oxycontin. I got an order for the medication and to stop TRACK MOVING MACHINE OPERATOR. Endy, administered the Percocet as we were waiting for pharmacy to load the Oxycontin. I reassessed his pain after a half hour and he said "this doesn't work" "I just want to be knocked out". He then proceeded to tell me that Dilaudid works. I told him I would get that instead, he stopped me and said that one doctor gave him Tramadol and that is really what works for pain. Very inconsistent with answers. I have relayed all this information to Dr. Conteh and he is having us get a pain management consult. I also informed Dr. Conteh that he is refusing to get out of bed and refused to work with occupational therapy. We will continue to monitor the patient's safety with narcotic administration, attempt non-medicine therapies, offer support and listen to patient, keep Dr. Conteh aware of any changes, and if necessary have anesthesia do the additional block when it is safe for the patient.
--- NOTE | 2017-03-29 11:12 | NUR ---
In speaking with patient and his family about his pain control, his tells me that he would just pop Percocet and "Oxies" so much that he fell out of his bed. He said that would pop Tylenols, Percocet, Oxies. Family states that he snores very loudly at night and stops breathing. He states that he has had pain consults in the past and doesn't like them because "they don't prescribe narcotics". "I saw Dr. Lazo and he said what I am taking should cover the pain very well" "Clifton doesn't know". I told him we will continue to assist in his pain control with safety.
--- NOTE | 2017-03-29 11:15 | NUR ---
Diabetes center note: 1100 CDE provides the Diabetes Survival Skills assessment form and spouse agrees to complete. Patient was hospitalized in January and at this time patient states he has all of his pump supplies just needs a refill on the Humalog U-200 insulin. Patient continues to complain of severe pain and spouse Kym is in tears, wanting someone to do something for patient. CDE spoke with Rah Ferrara hospitalist and he is going to assist with pain control. LUZ called to Cindy Merchant RN, CDE at [facility] to notify her that they are having difficulty getting a refill on the insulin at [facility], message left for Cindy to call Kym, spouse or patient, as they both have their cell phones with them.
[2017-03-29 12:41] LABS: ANION GAP 9.6 (10.0-19.0); CALCIUM 8.1 mg/dL (8.5-10.5); CREATININE 1.3 mg/dL (0.6-1.3); POTASSIUM 3.6 mMol/L (3.7-5.1)
--- NOTE | 2017-03-29 15:39 | NUR ---
Attempted to see pt again this afternoon. Pt refused stating his pain is worse that it was earlier. Encouraged pt to try and sit up on side of bed or chair but pt refused. Pt did not want to do any exercises either as he states his pain is a 10/10. Will attempt to see tomorrow. Chinyere Nuñez, PT
--- NOTE | 2017-03-29 16:15 | NUR ---
[facility] note: 1600 Spoke with son, spouse and patient. Assisted patient in recording blood sugars and insulin doses from today. Instructed on proper use of the insulin pump log sheet at bedside and how to record blood sugars, insulin doses. They state understanding that patient needs to change site of infusion set sometime yet today.
--- NOTE | 2017-03-29 17:35 | NUR ---
Pt has had pain issues this shift. Pt has been very inconsistent on what he wants for pain medication. He refused his facilities mechanical design engineer at 0855, and said percocet and oxy would be better. When CONVENTION SERVICES MANAGER was dc'd there were 18 demands and 18 deliveries for a total of 3.6mg. Pt's ETCO2 + O2 monitored after CONVENTION SERVICES MANAGER dc'd. Both Percocet and oxycodone ER were given, but were ineffective per patient. Pt was also given valium po, which also didn't help his pain. Toradol IV was given, w/o being effective per pt. Pt did look more relaxed after pain pills, but compains of severe intermittent shooting pains. Pain specialist consult suggested, and hospitalist increased cymbalta to 60 mg and added neurontin. Anesthesia consulted, will need to contact them for possible block. Anesthesia is aware, but was unable to do, due to lovenox being administered prior. Pt allowed us to elevate and ice his leg this morning, but refused the rest of the day. Pt would occasionally elevate it himself, but refused when staff offered. Pt refused therapy. Pt refused breakfast, but ate all his lunch. His 1714 blood sugar was 55. Pt given juice and ordered dinner. Drain remains in per Dr Morley. 20cc's out of hemovac this shift. Pt also refused foot pump this shift. Dressing C/D/I. Voiding w/o difficulty.
--- NOTE | 2017-03-30 05:20 | NUR ---
Significant Event: Pain issues throught first part of night. Percocet 2 tablets and Valium 5 mg at 2305, not effective. MARLENA Marshall came up and placed a block per Dr Conteh's order. Pt slept solidly for next 2 hours, awoke with stabbing pain, Dilaudid 0.2 mg IVP at 0241, slept since. VSS. Refused to reposition self or to get out of bed. Alert/oriented x3. Refuses foot pump to left foot. Insulin pump, he has his own supplies. Hemovac 0 mls out, only small amount in tubing. Voided X7 - quantity sufficient, no BM. Follow up:
--- NOTE | 2017-03-30 12:24 | NUR ---
Introduced self and care management services to patient. Lives in [place] with . Plans on going home on discharge, hoping to go home tomorrow. Has walker, electric scooter, people building w/c ramp for him at home now, and has other equipment he needs at home. Denies concerns about going home on discharge, denies needs. Says and family will help him as needed, can get into house without w/c ramp if needed. Will follow.
--- NOTE | 2017-03-30 15:10 | NUR ---
Significant Event: Pt Aox3. VSS, CSM adequate to right leg. Dressing was changed this am by Jacki Krueger PA-C. Incision is sutured and has no redness, drainage, or swelling. Stump was rewrapped with Iodoform, gauze, kerlix and stump sock was placed. Ampushield was put on by Box Person after the dressing change. Pt stated everything felt good, ampushield was not digging in or causing any pressure on skin. Follow up:
--- NOTE | 2017-03-30 17:55 | NUR ---
Significant Event: Pt transfered from 3N at 1600. 2 percocet given at 1630 for right stump pain. up with 1 assist walker. Follow up:
--- NOTE | 2017-03-31 04:46 | NUR ---
Patient alert and oriented x3, had pain at beging of shift but has slept soundly most of the night, has information support project manager/gaurd present to stump at all times, was assessed by the MD yesterday, transfers one assist, plans to go home today
--- NOTE | 2017-03-31 17:32 | NUR ---
Significant Event: Ambulates with SBA and walker. Percocet 1 tab last at 1500. Dressing C/D/I. Ampushield at all times. Voids without difficulty. Accuchecks ACHS, has own insulin pump. Trend ox last night, patient does require 1L O2 while sleeping. Follow up:
--- NOTE | 2017-04-01 05:34 | NUR ---
Significant Event: Patient rests in bed throughout the night resting quietly. Alert and orientated. Vitals stable. Last 2 percocet at 3:09. Reported pain of 8, and it just came on all of a sudden. Follow up:Continue to monitor.
[2017-04-01] MEDS ORDERED: COLACE100 MG PO (16:02)
[2017-04-01] MEDS ORDERED: OXYCONTIN EXTEN10 MG PO (16:03)
[2017-04-01] MEDS ORDERED: LYRICA 100MG C100 MG PO (16:04)
[2017-04-01] MEDS ORDERED: SENNA8.6 MG PO (16:04)
[2017-04-01] MEDS ORDERED: VALIUM5 MG PO (16:05)
[2017-04-01] MEDS ORDERED: MILK OF MA400 MG/5 M PO (16:06)
[2017-04-01] MEDS ORDERED: PERCOCET 5-3251 EACH PO (16:08)
[2017-04-01] MEDS ORDERED: LOVENOX 4040 MG/0.4 SUB-Q (16:36)
[2017-04-01] MEDS ORDERED: HUMALOG KW200 UNIT/1 SUB-Q (16:36)
--- NOTE | 2017-04-01 17:13 | NUR ---
Dismissal Note: Ambulates with SBA and walker. Maintains NWB to R) leg. Dressing C/D/I, ampushield at all times. Percocet 2 tabs for pain. Voids without difficulty. IV d/cd. Maureen education given with dismissal instructions, patient states understanding. Dismissed to home with .
[2017-07-10] MEDS ORDERED: IRON325 M1 PO (12:46)
[2017-07-10] MEDS ORDERED: INSULIN U-500 (12:49)
[2017-07-11] MEDS ORDERED: KEFLEX500 MG PO (09:33)
== END 2017-04-01 17:10 | disposition disaster alternative care site (69) | DRG 240 ==
LOC: G3N 03-28 11:47 → GMSU 03-30 15:43
PROVIDERS: ADMIT Orthopaedic Surgery Adult Reconstructive Orthopaedic Surgery
PROC: 0Y6H0Z2 Detachment at Right Lower Leg, Mid, Open Approach (ICD-10-PCS; principal; 2017-03-28)
PROC: 3E0T3BZ Introduction of Anesthetic Agent into Peripheral Nerves and Plexi, Percutaneous Approach (ICD-10-PCS; 2017-03-30)
DX: E10.52 Type 1 diabetes mellitus with diabetic peripheral angiopathy with gangrene (principal); M86.671 Other chronic osteomyelitis, right ankle and foot; E10.22 Type 1 diabetes mellitus with diabetic chronic kidney disease; E10.40 Type 1 diabetes mellitus with diabetic neuropathy, unspecified; Z96.41 Presence of insulin pump (external) (internal); E10.69 Type 1 diabetes mellitus with other specified complication; I12.9 Hypertensive chronic kidney disease with stage 1 through stage 4 chronic kidney disease, or unspecified chronic kidney disease; N18.3 Chronic kidney disease, stage 3 (moderate); E78.5 Hyperlipidemia, unspecified; E66.9 Obesity, unspecified; Z68.35 Body mass index [BMI] 35.0-35.9, adult; G47.33 Obstructive sleep apnea (adult) (pediatric); G47.36 Sleep related hypoventilation in conditions classified elsewhere; F32.9 Major depressive disorder, single episode, unspecified; Z89.431 Acquired absence of right foot; E10.610 Type 1 diabetes mellitus with diabetic neuropathic arthropathy; E10.39 Type 1 diabetes mellitus with other diabetic ophthalmic complication; M54.9 Dorsalgia, unspecified; Z79.82 Long term (current) use of aspirin; Z87.891 Personal history of nicotine dependence; M54.2 Cervicalgia; E10.649 Type 1 diabetes mellitus with hypoglycemia without coma; G89.18 Other acute postprocedural pain; G89.4 Chronic pain syndrome
CPT/HCPCS: A9270; J0690; J1170; J1650; J1885; J2001; J3010; J7030; J7050

== ENCOUNTER → 2017-03-23 | Outpatient (CLI) | payer MEDICARE, OTHER ==
[~2017-03-23] MED LIST changes: +COLACE100 MG PO; +HUMALOG KW200 UNIT/1 SUB-Q; +INSULIN U-500; +IRON325 M1 PO; +LOVENOX 4040 MG/0.4 SUB-Q; +LYRICA 100MG C100 MG PO; +MILK OF MA400 MG/5 M PO; +OXYCONTIN EXTEN10 MG PO; +SENNA8.6 MG PO; +VALIUM5 MG PO
[2017-03-23 11:16] LABS: INR - (THERAPEUTIC) 1.02 (0.92-1.07); PROTIME 10.7 SECONDS (9.8-11.4)
== END | disposition disaster alternative care site (69) ==
LOC: LGSMG 10:59
PROVIDERS: Internal Medicine
DX: Z01.818 Encounter for other preprocedural examination (principal)

== ENCOUNTER → 2017-04-09 | Outpatient (CLI) | payer MEDICARE, OTHER ==
--- NOTE | ~2017-04-09 | PUL ---
PATIENT'S NAME: MINI THOMAS [facility] AGE: 66 Y [address] ROOM: [place] [address] LOCATION: [facility] ADMIT DATE: 04/09/2017 Pulmonary DISCHARGE DATE: FAMILY PHYSICIAN: Halima Farmer MD ATTENDING PHYSICIAN: Halima Farmer NAME OF PROCEDURE: Home Sleep Test DATE OF PROCEDURE: April 09, 2017 TECH: Hollis Michel [facility] SUMMARY: Patient underwent home sleep testing using a type III device and was studied for 8 hours 21 minutes. There were 231 apneas and 147 hypopneas for an apnea/hypopnea index severely elevated at 45 events per hour. Oxygen saturations ranged from 64% to 90%. Heart rate ranged from 47 to 100 beats per minute. IMPRESSION: Severe obstructive sleep apnea. PLAN: Would consider a facility based study for initiation and titration of CPAP. Patient will receive results from the ordering provider. KATINA CONTRERAS MD SEP/ /[id number] dtt: 04/30/17 1429 , Katina Contreras dtd: 04/17/17 1402
== END | disposition disaster alternative care site (69) ==
LOC: GSLP 10:57
DX: G47.10 Hypersomnia, unspecified (principal); G47.36 Sleep related hypoventilation in conditions classified elsewhere; G47.33 Obstructive sleep apnea (adult) (pediatric)
CPT/HCPCS: G0399

== ENCOUNTER → 2017-04-12 | Outpatient (CLI) | payer MEDICARE, OTHER | END | disposition disaster alternative care site (69) | LOC: LGSMG 09:48 | DX: T87.43 Infection of amputation stump, right lower extremity (principal) ==

== ENCOUNTER 2017-04-14 23:42 | Emergency (ER) | payer MEDICARE, OTHER ==
--- NOTE | ~2017-04-14 | ER ---
PATIENT'S NAME: MINI THOMAS [facility] AGE: 66 Y [address] ROOM: [place] [address] LOCATION: [facility] ADMIT DATE: 04/14/2017 ER/Outpatient Report DISCHARGE DATE: FAMILY PHYSICIAN: Halima Farmer MD ATTENDING PHYSICIAN: Igor Estrella TIME OF ARRIVAL: 2342 hours. TIME SEEN: 2355 hours. CHIEF COMPLAINT: This is a 66-year-old male insulin-dependent diabetic otherwise reasonably healthy. He is in with the complaint of rectal bleeding. HISTORY OF PRESENT ILLNESS: He reports that he had 3 episodes of bright red blood per rectum that occurred over the last 3-4 hours. He states that it is bright red blood without clots approximately 1-2 tablespoons at a time. PAST MEDICAL HISTORY: Significant for insulin-dependent diabetes, he is 2 weeks, status post below- knee amputation. He is currently taking Lovenox injections. CURRENT MEDICATIONS: Please see list. REVIEW OF SYSTEMS: He denies any recent illnesses. He has had no abdominal pain or bloating. All other systems are negative. SOCIAL HISTORY: He is a nonsmoker. PHYSICAL EXAMINATION: GENERAL: Alert, cooperative male, in no acute distress. VITAL SIGNS: Stable. SKIN: Warm and dry. Color is normal. HEAD, EARS, EYES, NOSE, AND THROAT: Normal. NECK: Supple. ABDOMEN: Soft and nontender. RECTAL: Exam revealed an anal fissure at 6 o'clock position. There is no active bleeding. EXTREMITIES: Normal. PATIENT'S NAME: MINI THOMAS [facility] AGE: 66 Y [address] ROOM: [place] [address] LOCATION: [facility] ADMIT DATE: 04/14/2017 ER/Outpatient Report DISCHARGE DATE: FAMILY PHYSICIAN: Halima Farmer MD ATTENDING PHYSICIAN: Igor Estrella LABORATORY DATA: CBC revealed a mild anemia, which was unchanged from his most recent CBC, his current hemoglobin is 8.5, the previous hemoglobin was 8.8. EMERGENCY DEPARTMENT COURSE: I discussed the patient with the orthopedist who performed this procedure and he agreed that the Lovenox could be stopped. ASSESSMENT: Rectal bleeding, secondary to an anal fissure. PLAN: He is instructed to stop his Lovenox, return for persistent bleeding, follow up with his regular doctor as previously arranged. IGOR ESTRELLA MD JDB/modl /[id number] d: 04/15/17 0439 t: 04/17/17 0443, OUTPATIENT REPORT
[~2017-04-14 23:42] MED LIST changes: -INSULIN U-500; -IRON325 M1 PO
[2017-04-15 00:42] LABS: BASOPHIL % 0.1 %; EOSINOPHIL # 0.1 K/uL (0.0-0.5); EOSINOPHIL % 0.7 %; HEMOGLOBIN 8.5 g/dL (11.0-16.0); IMMATURE GRANULOCYTE # 0.1 K/uL (0.0-0.3); IMMATURE GRANULOCYTE % 1.2 %; LYMPHOCYTE # 1.4 K/uL (0.8-4.0); LYMPHOCYTE % 21.2 %; MCH 30.6 pg (27.0-34.0); MCHC 32.7 gm/dL (32.0-36.5); MCV 93.5 fl (83.0-98.0); MONOCYTE # 0.5 K/uL (0.0-1.0); MONOCYTE % 7.9 %; MPV 9.5 fl (9.4-12.4); NEUTROPHIL # (ANC) 4.6 K/uL (1.4-9.0); NEUTROPHIL % 68.9 %; NRBC % 0 /100WBC (0-0.00); RBC 2.78 M/uL (3.50-5.50); RDW-CV 16.1 % (11.9-14.6); WBC 6.7 K/uL (4.0-11.0)
[2017-04-15 00:43] LABS: PLATELET COUNT 396 K/uL (150-450)
[2017-04-15 00:52] LABS: INR - (THERAPEUTIC) 1.14 (0.92-1.07); PTT 29 SECONDS (25-32)
[2017-04-15 00:58] LABS: ALBUMIN 3.1 gm/dL (3.5-5.0); ANION GAP 10.7 (10.0-19.0); CALCIUM 8.3 mg/dL (8.5-10.5); CREATININE 1.3 mg/dL (0.6-1.3); POTASSIUM 3.7 mMol/L (3.7-5.1); TOTAL PROTEIN 6.8 g/dL (6.0-8.4)
[2017-04-15 01:01] LABS: TOTAL BILIRUBIN 0.4 mg/dL (0.0-1.5)
[2017-07-10] MEDS ORDERED: IRON325 M1 PO (12:46)
[2017-07-10] MEDS ORDERED: INSULIN U-500 (12:49)
[2017-07-11] MEDS ORDERED: KEFLEX500 MG PO (09:33)
== END 2017-04-15 01:21 | disposition disaster alternative care site (69) ==
LOC: GMED 23:42
PROVIDERS: Emergency Medicine
DX: K60.2 Anal fissure, unspecified (principal); E11.9 Type 2 diabetes mellitus without complications; Z79.4 Long term (current) use of insulin; Z88.2 Allergy status to sulfonamides; Z88.5 Allergy status to narcotic agent; Z79.82 Long term (current) use of aspirin; Z79.2 Long term (current) use of antibiotics; Z89.512 Acquired absence of left leg below knee; Z89.511 Acquired absence of right leg below knee

== ENCOUNTER → 2017-05-14 | Outpatient (CLI) | payer MEDICARE, OTHER ==
[~2017-05-14] MED LIST changes: +INSULIN U-500; +IRON325 M1 PO
--- NOTE | ~2017-05-14 | PUL ---
PATIENT'S NAME: MINI THOMAS [facility] AGE: 66 Y [address] ROOM: [place] [address] LOCATION: [facility] ADMIT DATE: 05/14/2017 Pulmonary DISCHARGE DATE: FAMILY PHYSICIAN: Halima Farmer MD ATTENDING PHYSICIAN: Pamela Chen NAME OF PROCEDURE: Sleep study PROCEDURE DATE: 05/14/2017 TECH: SHAHRAM Dahl TEST #: [facility] [place] [id number] TECHNICAL PARAMETERS: The patient was studied using International 10/20 measuring system. While the patient was studied, there was continuous monitoring of EEG (8 leads), EOG (2 leads), EKG (3 leads), submental EMG (3 leads), tibial (4 leads), respiratory inductive plethysmography (RIP) for thoracic and abdominal effort, oral and nasal airflow with a thermocouple and pressure transducer, and oximetry. The biological science technician also performed visual and auditory observations noting things like body position, patient's status, breath sounds, artifact, snoring level and patient comments. Continuous sound was monitored using a 2-way speaker system and video monitoring was performed using an infrared camera. Review of the entire study was performed epoch by epoch utilizing a single epoch and multiple epoch capability sleep system. MEDICAL HISTORY: The patient is a 66-year-old overweight man with daytime sleepiness and snoring. SLEEP STAGE SUMMARY: The patient was studied for 403 minutes of which he slept 303 minutes. He fell asleep in 28 minutes and slept for 75% of the night. Sleep architecture revealed a decline in slow wave and REM sleep. RESPIRATORY SUMMARY: Oxygen saturations ranged from 86-95%. This study was done to titrate CPAP which was started at 6 cm and titrated to 10 cm with good control of the respiratory events. EKG SUMMARY: No significant dysrhythmias were noted. LIMB MOVEMENT SUMMARY: No clinically relevant periodic limb movements were noted. SUMMARY: Obstructive sleep apnea responsive to CPAP at 10 cm. PLAN: Suggest CPAP at 10 cm. Patient will receive results from the ordering PATIENT'S NAME: MINI THOMAS [facility] AGE: 66 Y [address] ROOM: [place] [address] LOCATION: [facility] ADMIT DATE: 05/14/2017 Pulmonary DISCHARGE DATE: FAMILY PHYSICIAN: Halima Farmer MD ATTENDING PHYSICIAN: Pamela Chen provider. KATINA CONTRERAS MD /[id number] dtt: 05/25/17 1301 , Katina Contreras dtd: 05/16/17 1448
== END | disposition disaster alternative care site (69) ==
LOC: GSLP 20:26
DX: G47.33 Obstructive sleep apnea (adult) (pediatric) (principal)

== ENCOUNTER → 2017-07-11 | Day surgery (SDC) | payer MEDICARE, OTHER ==
[~2017-07-11] VITALS: Ht 180.3 cm; Wt 102.2 kg
--- NOTE | ~2017-07-11 | OR ---
PATIENT'S NAME: MINI WRIGHT [facility] AGE: 67 Y [address] ROOM: [place] [address] LOCATION: [facility] ADMIT DATE: 07/11/2017 OR/Procedure Report DISCHARGE DATE: FAMILY PHYSICIAN: Halima Farmer MD ATTENDING PHYSICIAN: SARAY BOYER SURGEON: Saray Boyer MD SANDBLAST OPERATOR: Stuart Krueger PA-C. DATE OF PROCEDURE: 07/11/2017 PREOPERATIVE DIAGNOSIS: Right below-knee amputation wound dehiscence with delayed healing. POSTOPERATIVE DIAGNOSIS: Right below-knee amputation wound dehiscence with delayed healing. PROCEDURES: Irrigation and debridement of right below-knee amputation stump. Debridement included skin, subcutaneous tissue, muscle, and fascia. Dimensions: 10 cm in length x 4 cm in width x 3 cm in depth. ANESTHESIA: General endotracheal anesthesia. FLUIDS: See Anesthesia report. ESTIMATED BLOOD LOSS: Minimal. TOURNIQUET: Right proximal thigh 250 mmHg. SPECIMEN: None. COMPLICATIONS: None. DISPOSITION: Stable in PACU. COUNTS: All counts were correct. INDICATIONS: Mr. Wright is a pleasant, 67-year-old gentleman who underwent the noted procedures above. The risks, benefits, and alternatives of pursuing surgical intervention were discussed with the patient in detail. Anesthesia was consulted for the perioperative evaluation of the patient. The patient was elected to proceed with surgery and informed consent was obtained. I marked the right lower extremity indicating the correct surgical site. DESCRIPTION OF PROCEDURE: The patient was brought from the holding area into the operating room. A time-out was performed. General endotracheal PATIENT'S NAME: MINI WRIGHT [facility] AGE: 67 Y [address] ROOM: [place] [address] LOCATION: [facility] ADMIT DATE: 07/11/2017 OR/Procedure Report DISCHARGE DATE: FAMILY PHYSICIAN: Halima Farmer MD ATTENDING PHYSICIAN: SARAY BOYER anesthesia was administered. Antibiotics were administered for perioperative prophylaxis. The right lower extremity was then prepped and draped in a sterile fashion. I turned my attention to the stump. An Esmarch was used to exsanguinate the limb. The tourniquet was inflated to 250 mmHg. I began my debridement using a 15 blade knife. I ellipsed the wound edges. I dissected down below subcutaneous tissue to the muscle and fascia. I used a rongeur and curette to debride the nonhealing portion of the flap. Once the tissue was debrided to a stable base, I irrigated using 3 L of normal sterile saline via pulsatile lavage. I was able to reapproximate the ellipsed wound edges using an 0 PDS and 2-0 nylon suture. The stump approximated without any undue tension. Sterile dressings were placed in the form of Xeroform, followed by 4x4, Webril, and Gregorio bandage. The tourniquet was let down. The patient was transferred to operating table on a stretcher and extubated. He was brought to the recovery room in stable condition. There were no intraoperative complications noted. Of note, my PA, Stuart Krueger PA-C, played an integral role in the intraoperative care of this patient. This included preoperative positioning, intraoperative expert retraction, and closing and dressing functions. IMPRESSION: The patient is status post the noted procedures above. PLAN: The patient will be nonweightbearing on the right lower extremity. Postoperative pain control in the form of Percocet and morphine as needed for pain. DVT prophylaxis will be mechanical in nature. He will be discharged to home from the PACU provided he meets PACU discharge criteria. He will follow up in my office in 1 week for repeat clinical evaluation. MD WENDY THOMPSON/karie PATIENT'S NAME: MINI WRIGHT [facility] AGE: 67 Y [address] ROOM: [place] [address] LOCATION: [facility] [place] ADMIT DATE: 07/11/2017 OR/Procedure Report DISCHARGE DATE: FAMILY PHYSICIAN: Halima Farmer MD ATTENDING PHYSICIAN: SARAY BOYER /[id number] d: 07/11/17 0947 t: 07/11/17 1338, OPERATIVE SUMMARY
== END | disposition disaster alternative care site (69) ==
LOC: GPOC 07-10 13:00 → GSDC 05:39 → GPOC 06:00
PROC: 0KBS0ZZ Excision of Right Lower Leg Muscle, Open Approach (ICD-10-PCS; principal; 2017-07-11)
DX: T87.81 Dehiscence of amputation stump (principal); E11.40 Type 2 diabetes mellitus with diabetic neuropathy, unspecified; F32.9 Major depressive disorder, single episode, unspecified; I10 Essential (primary) hypertension; E78.5 Hyperlipidemia, unspecified; M19.90 Unspecified osteoarthritis, unspecified site; G47.33 Obstructive sleep apnea (adult) (pediatric); Z87.01 Personal history of pneumonia (recurrent); Z88.2 Allergy status to sulfonamides; Z88.5 Allergy status to narcotic agent; Z91.041 Radiographic dye allergy status; Z79.82 Long term (current) use of aspirin; Z79.899 Other long term (current) drug therapy; Z79.4 Long term (current) use of insulin; Z98.41 Cataract extraction status, right eye; Z98.42 Cataract extraction status, left eye; Z96.41 Presence of insulin pump (external) (internal); Z90.49 Acquired absence of other specified parts of digestive tract; Y83.8 Other surgical procedures as the cause of abnormal reaction of the patient, or of later complication, without mention of misadventure at the time of the procedure; Z98.890 Other specified postprocedural states
CPT/HCPCS: J0690; J2001; J2250; J2765; J7030; J7042